=== PATIENT | female | born 1960 | race Two or more races ===

== ENCOUNTER 2021-01-02 08:15 | Inpatient (IN) | payer OTHER ==
[~2021-01-02] VITALS: Ht 160 cm; Wt 90.7 kg
[2021-01-02] MEDS ORDERED: COZAAR100 MG PO (10:52)
[2021-01-09] MEDS ORDERED: NEO-POLYMYXIN-H10 M1 (07:54)
== END 2021-01-11 08:40 | disposition home or self-care (01) | DRG 741 ==
LOC: OB/GYN 01-09 06:00 → O/R 01-09 06:00 → SURH 01-09 08:15 → OB/GYN 01-09 16:33
PROVIDERS: ADMIT Obstetrics & Gynecology Gynecologic Oncology; ATTEND Obstetrics & Gynecology Gynecologic Oncology
PROC: 0UT24ZZ Resection of Bilateral Ovaries, Percutaneous Endoscopic Approach (ICD-10-PCS; 2021-01-09)
PROC: 0UT74ZZ Resection of Bilateral Fallopian Tubes, Percutaneous Endoscopic Approach (ICD-10-PCS; 2021-01-09)
PROC: 07BC4ZZ Excision of Pelvis Lymphatic, Percutaneous Endoscopic Approach (ICD-10-PCS; 2021-01-09)
PROC: 0UT94ZZ Resection of Uterus, Percutaneous Endoscopic Approach (ICD-10-PCS; principal; 2021-01-09 13:45)
DX: C54.1 Malignant neoplasm of endometrium (principal); N80.0 Endometriosis of uterus; N83.319 Acquired atrophy of ovary, unspecified side; D25.1 Intramural leiomyoma of uterus; D36.0 Benign neoplasm of lymph nodes; I10 Essential (primary) hypertension